=== PATIENT | male | born 1990 | race Caucasian/White ===

== ENCOUNTER 2020-03-15 21:47 | Emergency (ER) | payer OTHER, SELFPAY ==
[~2020-03-15] VITALS: Ht 175.3 cm; Wt 110.2 kg
[2020-03-15 22:02] VITALS: BP 143/76
--- NOTE | 2020-03-15 22:10 | NUR ---
C/O COUGH X 3-4 DAYS. PT RECENTLY TESTED NEG FOR COVID. PT DOES WORK IN A [employer]. COUGH IS DRY AND PHELGM. 99% RA. PT SAYS HE JUST WANTS COUGH MEDICINE. LUNG SOUNDS ARE CLEAR BILAT UPPER LOBES AND DIMINSHED BILAT LOWER LOBES. NO RESP DISTRESS NOTED. EQUAL CHETS RISE AND FALL. VSS. A&O X4. SKIN COLOR NORMAL FOR ETHNICITY. ALLERGIES: AMOXICILLIN PMH: ASTHMA, CORNEAL TRANSPLANT.
[2020-03-15 23:03] VITALS: BP 143/76
--- NOTE | 2020-03-15 23:03 | NUR ---
Patient discharged with v/s stable. Written and verbal after care instructions given and explained. Patient alert, oriented and verbalized understanding of instructions. Ambulatory with steady gait. All questions addressed prior to discharge. ID band removed. Patient advised to follow up with PMD. Rx of CHESATUSSIN given. Patient educated on indication of medication including possible reaction and side effects. Opportunity to ask questions provided and answered.
== END 2020-03-15 23:03 | disposition home or self-care (01) ==
LOC: MED 21:47
DX: R05 Cough (principal); J45.909 Unspecified asthma, uncomplicated; Z88.1 Allergy status to other antibiotic agents
CPT/HCPCS: 99283

== ENCOUNTER 2020-03-18 15:17 | Emergency (ER) | payer OTHER, SELFPAY ==
[~2020-03-18] VITALS: Ht 175.3 cm; Wt 100.7 kg
[2020-03-18 15:20] VITALS: BP 159/85
--- NOTE | 2020-03-18 15:25 | NUR ---
bib self for med refill: diazepam.
[2020-03-18 15:32] VITALS: BP 159/85
--- NOTE | 2020-03-18 15:33 | NUR ---
Patient discharged with v/s stable. Written and verbal after care instructions given and explained. Patient alert, oriented and verbalized understanding of instructions. Ambulatory with steady gait. All questions addressed prior to discharge. ID band removed. Patient advised to follow up with PMD. Rx of VALIUM given. Patient educated on indication of medication including possible reaction and side effects. Opportunity to ask questions provided and answered.
== END 2020-03-18 15:33 | disposition home or self-care (01) ==
LOC: MED 15:17
DX: F31.9 Bipolar disorder, unspecified (principal); F41.9 Anxiety disorder, unspecified; J45.909 Unspecified asthma, uncomplicated; Z76.0 Encounter for issue of repeat prescription; Z88.1 Allergy status to other antibiotic agents
CPT/HCPCS: 99281; 99283